=== PATIENT | female | born 1970 | race African-American/Black ===

== ENCOUNTER 2020-07-13 13:00 | Observation (INO) ==
[2020-07-13] MEDS ORDERED: SODIUM CHLORIDE 0.9% 1,000 ML IV STA ×2 (13:43→15:06)
[2020-07-13] MEDS ORDERED: LORazepam 2 MG/1 ML VIAL ONE (13:58)
[2020-07-13] MEDS ORDERED: LORazepam 2 MG/1 ML VIAL IV STA (14:25)
[2020-07-13 14:31] LABS: Basophils # 0.1 10*3/uL (0.0-0.2); Eosinophils % 0.5 % (0.00-10.9); Hematocrit 36.8 VOL% (35.7-47.0); Hemoglobin 12.1 GM/DL (12.0-16.0); Immature Granulocytes % 0.4 %; Immature Granulocytes Absolute 0.03 #; Lymphocytes # 1.9 10*3/uL (1.4-4.0); Lymphocytes % 23.5 % (21.3-54.2); Mean Corpuscular HGB Conc 32.9 GM/DL (32-36); Mean Corpuscular Volume 96.3 FL (87-102); Mean Platelet Volume 11.8 FL (9.6-12.0); Monocytes % 8.5 % (1.7-12.7); Neutrophils % 66.1 % (38.7-73.9); Platelet Count 266 T/CUMM (130-400); Red Blood Count 3.82 MC/CUMM (3.8-5.5); Red Cell Distribution Width 11.9 % (9.3-17.3); White Blood Count 7.9 T/CUMM (4-12)
[2020-07-13 14:36] LABS: Calcium 9.4 MG/DL (8.5-10.1)
[2020-07-13 14:37] LABS: Alanine Aminotransferase 15 U/L (13-56); Albumin 4.2 G/DL (3.4-5.0); Alkaline Phosphatase 92 U/L (45-117); Aspartate Amino Transferase 23 U/L (0-37); Bilirubin,Total 0.71 MG/DL (0.2-1.0); Blood Urea Nitrogen 9 MG/DL (7-18); Carbon Dioxide 18 MMOL/L (21-32); Estimated Glom Filtration Rate 79 ML/MIN; Glucose 131 MG/DL (74-106); Osmolality,Calculated 281.3 MOS/KG (273-304); Potassium 3.2 MMOL/L (3.5-5.1); Sodium 141 MMOL/L (136-145); Total Protein 7.8 G/DL (6.4-8.2)
[2020-07-13 14:51] LABS: INR 1.1; PT Patient Result 12.3 SECS (10.5-12.0)
[2020-07-13] MEDS ORDERED: POTASSIUM CHLORIDE 20 MEQ TABLET PO STA (15:02)
[2020-07-13 15:36] LABS: Bilirubin,Urine Negative (Negative); Blood, Urine Negative (Negative); Glucose,Urine (UA) Negative (Negative); Ketones,Urine 20 mg/dL (Negative); Mucus,Urine Occasional /LPF (Occasional); Nitrite,Urine Negative (Negative); Protein,Urine Negative; RBC,Urine 1 /HPF (0-4); Squamous Epithelial Cell,Urine Occasional /HPF (0-10); Urine Appearance CLEAR (Clear); Urine Color Yellow (Yellow); Urine Specific Gravity 1.012 (1.001-1.035)
[2020-07-13 15:40] LABS: Barbiturates Screen,Urine Negative (Negative); Benzodiazepines Screen,Urine Negative (Negative); Cannabinoid Screen,Urine Positive (Negative); Opiate Screen,Urine Negative (Negative); Phencyclidine Screen,Urine Negative (Negative)
[2020-07-13] MEDS ORDERED: ACETAMINOPHEN 325 MG TABLET PO PRN (16:31)
[2020-07-13] MEDS ORDERED: ONDANSETRON 4 MG/2 ML VIAL IV PRN (16:31)
[2020-07-13] MEDS ORDERED: PROMETHAZINE 25 MG TABLET PO PRN (16:31)
[2020-07-13] MEDS ORDERED: POTASSIUM CHLORIDE 20 MEQ TABLET PO ONE ×2 (16:33→20:33)
[2020-07-13 17:05] LABS: ABG Base Excess -2.4 MMOL/L (-2.5-2.5); ABG Oxygen Saturation 95.4 % (95-100); ABG PCO2 41.8 MM HG (35-48); ABG PH 7.358 (7.35-7.45); ABG PO2 83.6 MM HG (80-95); ABG TCO2 24.3 MMOL/L (23-27); Pt O2 Delivery Device Room Air
[2020-07-13] MEDS: LACTATED RINGERS 1,000 ML IV SCH (17:59)
[2020-07-13] MEDS ORDERED: ENOXAPARIN 40 MG/0.4 ML SYRINGE SUBCUT SCH (21:00)
[2020-07-14] MEDS: LACTATED RINGERS 1,000 ML IV SCH ×2 (02:00→09:51)
[2020-07-14 05:47] LABS: Basophils # 0.1 10*3/uL (0.0-0.2); Basophils % 0.7 % (0.0-0.8); Eosinophils # 0.1 10*3/uL (0.0-0.87); Eosinophils % 0.6 % (0.00-10.9); Hematocrit 32.7 VOL% (35.7-47.0); Hemoglobin 10.7 GM/DL (12.0-16.0); Immature Granulocytes % 0.2 %; Immature Granulocytes Absolute 0.02 #; Lymphocytes # 2.4 10*3/uL (1.4-4.0); Lymphocytes % 28.7 % (21.3-54.2); Mean Corpuscular HGB Conc 32.7 GM/DL (32-36); Mean Corpuscular Volume 95.9 FL (87-102); Mean Platelet Volume 12.2 FL (9.6-12.0); Monocytes % 11.6 % (1.7-12.7); Neutrophils % 58.2 % (38.7-73.9); Platelet Count 239 T/CUMM (130-400); Red Blood Count 3.41 MC/CUMM (3.8-5.5); White Blood Count 8.3 T/CUMM (4-12)
[2020-07-14 06:10] LABS: Albumin 3.1 G/DL (3.4-5.0); Bilirubin,Total 1.3 MG/DL (0.2-1.0); Calcium 8.4 MG/DL (8.5-10.1); Osmolality,Calculated 284.7 MOS/KG (273-304); Potassium 3.6 MMOL/L (3.5-5.1); Risk Ratio 3.24; Thyroid Stimulating Hormone 0.657 uIU/ml (0.358-3.74); VLDL CHOLESTEROL 9.8 MG/DL
[2020-07-14] MEDS ORDERED: DOCUSATE SODIUM 100 MG CAPSULE PO SCH (11:30)
[2020-07-14] MEDS ORDERED: POLYETHYLENE GLYCOL POWDER 17 GM PACK PO SCH (11:30)
[2020-07-14] MEDS ORDERED: ASPIRIN EC 81 MG TABLET PO SCH (11:30)
[2020-07-14] MEDS ORDERED: METOPROLOL TARTRATE 25 MG TABLET PO SCH (11:30)
[2020-07-14 12:12] VITALS: BP 129/77
== END 2020-07-14 13:58 | disposition home or self-care (01) ==
LOC: N.ED 13:00 → N.EDINP 16:31 → SUATTDRO 16:31 → INTOOBSV 16:31 → N.5E 17:19
PROVIDERS: ADMIT Family Medicine; ATTEND Internal Medicine